=== PATIENT | male | born 1945 | race American Indian/Alaskan Native ===

== ENCOUNTER 2017-01-14 18:58 | Emergency (ER) | payer MEDICARE ==
[2017-01-14 20:32] VITALS: BP 121/71
--- NOTE | 2017-01-14 21:03 | Emergency Department Report ---
ED Back Pain/Injury HPI - General Chief Complaint: Back Pain/Injury Stated Complaint: BACK PAIN Time Seen by Provider: 01/14/17 20:50 Source: patient, EMS Limitations: No Limitations - History of Present Illness Initial Comments: This is a pleasant 71-year-old gentleman who came by EMS due to right lateral chest wall pains. He states that he's had it persistently throughout the day today. It is worse with peripheral vision position from lying to sitting or from sitting to standing. He reports having the pain actually for 3 days but it 's only been on and off with some activities during the 2 days prior. Today it is been persistent. Patient denies any specific trauma that he can recall. He has had fairly significant medical history for the past month. He apparently was iatrogenically placed on too high of a beta angi which put him in due to bradycardia and syncope. He did require intubation at that time. This was one month ago. He apparently was in the hospital 1 week ago as well because of similar situation where he was becoming hypotensive due to his beta angi as well. He is still on a beta angi but at an adjusted dose that he is tolerating much better now. His blood pressures have been appropriate. In fact his blood pressure times once by family was elevated today when he was in a state of pain. The patient otherwise states he has some slight increase of pain with deep respirations. He is on oxygen at home 2 L. He denies any chest pains otherwise. He has had some increased belching today as well. He denies any abdominal pain associated with this. - Related Data Previous Rx's Medication Instructions Recorded Last Taken Type oxyCODONE /ACETAMINOPHEN [Percocet 1 tab PO Q6HR PRN #20 tablet 01/14/17 Unknown Rx 5/325] Allergies Allergy/AdvReac Type Severity Reaction Status Date / Time No Known Allergies Allergy Unverified 01/14/17 20:32 ED Review of Systems ROS: Stated complaint: BACK PAIN Other details as noted in HPI Comment: All other systems reviewed and negative Constitutional: weakness (ongoing for the past month). denies: chills, fever Eyes: denies: eye pain, eye discharge, vision change ENT: denies: ear pain, throat pain Respiratory: SOB with exertion. denies: cough, wheezing Cardiovascular: other (chest wall pains). denies: chest pain, palpitations Endocrine: no symptoms reported Gastrointestinal: other (burping). denies: abdominal pain, nausea, diarrhea Genitourinary: denies: urgency, dysuria Musculoskeletal: denies: back pain, joint swelling, arthralgia Skin: denies: rash, lesions Neurological: denies: headache, weakness, paresthesias Psychiatric: denies: anxiety, depression Hematological/Lymphatic: denies: easy bleeding, easy bruising ED Past Medical Hx - Past Medical History Hx Hypertension: Yes Hx Congestive Heart Failure: Yes Additional medical history: respiratory failure - Surgical History Hx Coronary Stent: Yes - Social History Smoking Status: Never Smoker Substance Use Type: None - Medications Home Medications: Home Medications Medication Instructions Recorded Confirmed Last Taken Type oxyCODONE /ACETAMINOPHEN [Percocet 1 tab PO Q6HR PRN #20 tablet 01/14/17 Unknown Rx 5/325] ED Physical Exam - General Limitations: No Limitations General appearance: alert, in no apparent distress - Head Head exam: Present: atraumatic, normocephalic - Eye Eye exam: Present: normal appearance, EOMI. Absent: scleral icterus - ENT ENT exam: Present: normal exam, normal orophraynx, mucous membranes moist - Neck Neck exam: Present: normal inspection - Respiratory Respiratory exam: Present: normal lung sounds bilaterally, other (easily easily reproducible chest wall pain on the right midaxillary line approximately rib 7 or 8. No bony step-off is noted. No crepitus is noted. No ecchymosis is noted in this region.). Absent: respiratory distress, wheezes, rales, rhonchi - Cardiovascular Cardiovascular Exam: Present: regular rate, normal rhythm. Absent: systolic murmur, diastolic murmur, rubs, gallop - GI/Abdominal GI/Abdominal exam: Present: soft, normal bowel sounds. Absent: tenderness, guarding, organomegaly - Rectal Rectal exam: Present: deferred - Extremities Exam Extremities exam: Present: normal inspection. Absent: tenderness, pedal edema, calf tenderness - Back Exam Back exam: Present: normal inspection. Absent: tenderness, CVA tenderness (R), CVA tenderness (L) - Neurological Exam Neurological exam: Present: alert, oriented X3 - Psychiatric Psychiatric exam: Present: normal affect, normal mood - Skin Skin exam: Present: warm, dry, intact, normal color. Absent: rash ED Course Vital Signs 01/14/17 01/14/17 20:28 21:58 Temperature 99.6 F Pulse Rate 86 Respiratory 20 18 Rate Blood Pressure 121/71 O2 Sat by Pulse 100 Oximetry - Reevaluation(s) Reevaluation #1: 01/14/17 22:08 Lab studies are unremarkable here in general. Cardiac enzymes are negative. BNP is noted be quite elevated. Creatinine function is adequate. I feel he is appropriate to continue on his current dose of Lasix. Chest x-ray demonstrates some mild vascular congestion. His oxygenation on 2 L nasal cannula is appropriate. He does have discomfort with deep inspiration due to his chest wall discomfort. I feel that his source of pain is a chest wall musculoskeletal region. I suspect there was some type of injury that occurred at some point. I do not see any obvious fracture on chest x-ray. I do not see any ecchymoses on examination. I feel he is safe for home. I did give routine precautions. He was given pain medication here. ED Medical Decision Making - Lab Data Result diagrams: 01/14/17 21:03 01/14/17 21:03 - Radiology Data interpreted by me: Mild vascular congestion. Cardiomegaly. No rib fractures noted. No infiltrate noted. Normal diaphragm bilaterally. Critical care attestation.: If time is entered above; I have spent that time in minutes in the direct care of this critically ill patient, excluding procedure time. ED Disposition Clinical Impression: Chest wall pain Disposition: DISCHARGED TO HOME OR SELFCARE Is pt being admited?: No Does the pt Need Aspirin: No Condition: Stable Instructions: Thoracic Pain (ED) Additional Instructions: Caution with activities. Consider some type of splinting anytime you moving or changing positions. Or coughing or deep breathing. The pain medication can be sedating as well as constipating. Take a stool softener. Return if worsening. Prescriptions: oxyCODONE /ACETAMINOPHEN [Percocet 5/325] 1 tab PO Q6HR PRN #20 tablet PRN Reason: Pain Referrals: AMANUEL REED MD [Primary Care Provider] - 3-5 Days Time of Disposition: 22:05
[2017-01-14 21:14] LABS: Basophils % (Auto) 0.2 % (0.0-1.8); Eosinophils % (Auto) 0.4 % (0.0-4.3); Hematocrit 35.3 % (35.5-45.6); Mean Corpuscular HGB Conc 31 % (32-34); Mean Corpuscular Volume 75 fl (84-94); Platelet Count 186 K/mm3 (140-440); Red Blood Count 4.69 M/mm3 (3.65-5.03); White Blood Count 7.8 K/mm3 (4.5-11.0)
[2017-01-14 21:29] LABS: Mean Corpuscular Hemoglobin 24 pg (28-32)
[2017-01-14 21:40] LABS: Alanine Aminotransferase 24 units/L (7-56); Albumin 3.6 g/dL (3.9-5); Albumin/Globulin Ratio 0.8 %; Alkaline Phosphatase 93 units/L (35-129); Anion Gap 18 mmol/L; BUN/Creatinine Ratio 15.55; Bilirubin,Total 0.5 mg/dL (0.1-1.2); Blood Urea Nitrogen 14 mg/dL (9-20); Calcium 8.9 mg/dL (8.4-10.2); Carbon Dioxide 22 mmol/L (22-30); Chloride 97.9 mmol/L (98-107); Glucose 130 mg/dL (75-100); Lipase 26 units/L (13-60); Potassium 4.8 mmol/L (3.6-5.0); Sodium 133 mmol/L (137-145); Total Protein 8.2 g/dL (6.3-8.2)
[2017-01-14] MEDS ORDERED: MORPHINE IV ONE (21:55)
--- NOTE | 2017-01-15 09:50 | XRay Report ---
ROUTINE CHEST, TWO VIEWS: HISTORY: chest pain. No comparison. Mild cardiomegaly, mild pulmonary venous congestion and trace bilateral pleural effusions are identified. No consolidation or pneumothorax. The bony structures are intact. IMPRESSION: Mild CHF.
== END 2017-01-14 22:39 | disposition home or self-care (01) ==
LOC: ED 18:58
DX: R07.89 Other chest pain (principal); I10 Essential (primary) hypertension; I50.9 Heart failure, unspecified
CPT/HCPCS: 36415; 71020; 80053; 83690; 83880; 85025; 96374; 99284; J2270